=== PATIENT | male | born 1985 | race Two or more races ===

== ENCOUNTER 2018-07-18 18:33 | Emergency (ER) | payer OTHER ==
[~2018-07-18] VITALS: Ht 170.2 cm; Wt 77.1 kg
[2018-07-18 19:11] VITALS: BP 142/79
--- NOTE | 2018-07-18 19:11 | Emergency Room Report ---
History of Present Illness General Chief Complaint: Medical Clearance Source: EMS Present Illness HPI 32-year-old male patient presents the ER brought in by police for medical clearance for incarceration. Please report that patient was running around street throwing rocks at cars. Reports that patient is not answering questions , states that he began sobbing uncontrollably. Patient is a poor historian. Denies chest pain, shortness of breath, abdominal pain. Patient is not providing accurate history. Denies drinking or drug use. Denies past medical history. Patient appears intoxicated, is resting comfortably in bed nontoxic- appearing in no acute distress. Allergies: Coded Allergies: UNABLE TO ASSESS (Unverified , 07/18/18) Patient History Past Medical History: see triage record Reviewed Nursing Documentation: PMH: Agreed; PSxH: Agreed Nursing Documentation-PMH Past Medical History: Deferred Review of Systems All Other Systems: negative except mentioned in HPI Physical Exam Vital Signs Date Time Temp Pulse Resp B/P (MAP) Pulse Ox O2 Delivery O2 Flow Rate FiO2 07/18/18 18:19 98.1 110 20 122/68 98 Room Air Sp02 EP Interpretation: reviewed, normal General Appearance: well appearing, no apparent distress, alert, GCS 15, non- toxic Head: normocephalic, atraumatic, other - Negative varghese sign, negative raccoon eyes Eyes: bilateral eye normal inspection, bilateral eye PERRL ENT: hearing grossly normal, normal pharynx, no angioedema, normal voice, uvula midline, moist mucus membranes, other - dried blood noted at left nares, no active bleeding Neck: full range of motion Respiratory: lungs clear, normal breath sounds, no rhonchi, no respiratory distress, no accessory muscle use, no wheezing, speaking full sentences Cardiovascular #1: regular rate, rhythm, no edema Cardiovascular #2: 2+ radial (R), 2+ radial (L) Gastrointestinal: non tender, soft, no mass, non-distended, no guarding, no rebound Genitourinary: no CVA tenderness Musculoskeletal: back normal, digits/nails normal, gait/station normal, normal range of motion, non-tender Neurologic: alert, oriented x3, responsive, motor strength/tone normal, sensory intact Psychiatric: mood/affect normal Skin: no rash Medical Decision Making PA Attestation Dr. Price is my supervising Physician whom patient management has been discussed with. Diagnostic Impression: Primary Impression: Medical clearance for incarceration Additional Impressions: Amphetamine abuse Epistaxis ER Course Pt. presents to the ED BIB police c/o behavioral complaint, clearance for incarceration. Ddx considered but are not limited to anxiety, depression, drug use, alcohol use , behavioral disorder. Will order labs and CT head due to behavioral complaints. Vital signs: are WNL, pt. is afebrile ER COURSE: Dried blood noted at external right nares, no active bleeding, no blue discoloration. Patient provided with IV fluids. Remainder of PE benign. No skull depression, lungs clear to auscultation, no abdominal TTP. Negative Raccoon eyes, negative Varghese sign. CBC unremarkable, mild anemia noted, does not require transfusion CMP unremarkable other than mild elevation in BUN Serum alcohol less than 3 Acetaminophen and salicylates unremarkable Urine drug screen positive for amphetamines, remainder negative. Advised patient not to use drugs. CT head negative for acute disease. Patient not suicidal or homicidal at this time. Patient in no acute distress, nontoxic appearing, breathing without difficulty. Patient is responsive to questions, arousable. Patient is discharged to police custody, medically cleared for incarceration. Patient seen and evaluated by Dr. Price, agrees with assessment and treatment plan. DISCHARGE: At this time pt is stable for d/c to home. Patient is resting comfortably, in no acute distress, nontoxic appearing, talking without difficulty. Patient to take medications as instructed Will provide with patient care instructions and any necessary prescriptions. Care plan and follow-up instructions provided. Patient instructed to follow-up with primary care provider in 3 - 5 days. Patient questions asked and answered. Patient reports understanding and agreement to treatment plan. ER precautions given. Patient instructed to return to ER immediately for any new or worsening of symptoms including but not limited to increasing SOB, persistent fever, chest pain, intractable vomiting. - Please note that this Emergency Department Report was dictated using [email or web address] technician technology software, occasionally this can lead to erroneous entry secondary to interpretation by the dictation equipment. Labs Test 07/18/18 19:00 07/18/18 20:20 White Blood Count 7.5 K/UL (4.8-10.8) Red Blood Count 4.38 M/UL (4.70-6.10) Hemoglobin 13.1 G/DL (14.2-18.0) Hematocrit 39.1 % (42.0-52.0) Mean Corpuscular Volume 89 FL (80-99) Mean Corpuscular Hemoglobin 30.0 PG (27.0-31.0) Mean Corpuscular Hemoglobin Concent 33.6 G/DL (32.0-36.0) Red Cell Distribution Width 11.9 % (11.6-14.8) Platelet Count 326 K/UL (150-450) Mean Platelet Volume 8.2 FL (6.5-10.1) Neutrophils (%) (Auto) 60.2 % (45.0-75.0) Lymphocytes (%) (Auto) 26.8 % (20.0-45.0) Monocytes (%) (Auto) 11.1 % (1.0-10.0) Eosinophils (%) (Auto) 0.9 % (0.0-3.0) Basophils (%) (Auto) 1.0 % (0.0-2.0) Sodium Level 137 MMOL/L (136-145) Potassium Level 3.3 MMOL/L (3.5-5.1) Chloride Level 101 MMOL/L (98-107) Carbon Dioxide Level 25 MMOL/L (21-32) Anion Gap 11 mmol/L (5-15) Blood Urea Nitrogen 23 mg/dL (7-18) Creatinine 0.8 MG/DL (0.55-1.30) Estimat Glomerular Filtration Rate > 60 mL/min (>60) Glucose Level 128 MG/DL (74-106) Calcium Level 9.4 MG/DL (8.5-10.1) Total Bilirubin 0.3 MG/DL (0.2-1.0) Aspartate Amino Transf (AST/SGOT) 40 U/L (15-37) Alanine Aminotransferase (ALT/SGPT) 51 U/L (12-78) Alkaline Phosphatase 110 U/L (46-116) Total Protein 7.9 G/DL (6.4-8.2) Albumin 3.6 G/DL (3.4-5.0) Globulin 4.3 g/dL Albumin/Globulin Ratio 0.8 (1.0-2.7) Salicylates Level 0.6 ug/mL (2.8-20) Acetaminophen Level < 2 MCG/ML (10-30) Serum Alcohol < 3 mg/dL Urine Opiates Screen Negative (NEGATIVE) Urine Barbiturates Screen Negative (NEGATIVE) Phencyclidine (PCP) Screen Negative (NEGATIVE) Urine Amphetamines Screen Positive (NEGATIVE) Urine Benzodiazepines Screen Negative (NEGATIVE) Urine Cocaine Screen Negative (NEGATIVE) Urine Marijuana (THC) Screen Negative (NEGATIVE) CT/MRI/US Diagnostic Results CT/MRI/US Diagnostic Results : Imaging Test Ordered: CT head Impression No ICH, mass effect or edema. No evidence of acute cortical stroke. Mild ethmoid sinus mucosal thickening. Last Vital Signs Date Time Temp Pulse Resp B/P (MAP) Pulse Ox O2 Delivery O2 Flow Rate FiO2 07/18/18 18:19 98.1 110 20 122/68 98 Room Air Status: improved Disposition: HOME, SELF-CARE Condition: Stable Referrals: NOT CHOSEN IPA/MD,REFERRING (PCP) Patient Instructions: Nosebleed, [id number], Stimulant Use Disorder- Methamphetamines Additional Instructions: Followup with primary care provider in 3 -5 days. Do not use drugs. Take medications as directed. Patient questions asked and answered. ER precautions given, patient instructed to return to ER immediately for any new or worsening of symptoms. Chandan Johnson Jul 18, 2018 19:11
[2018-07-18 19:23] LABS: EOSINOPHILS % (AUTO) 0.9 % (0.0-3.0); HEMATOCRIT 39.1 % (42.0-52.0); HEMOGLOBIN 13.1 G/DL (14.2-18.0); LYMPHOCYTES % (AUTO) 26.8 % (20.0-45.0); MEAN CORPUSCULAR VOLUME 89 FL (80-99); MONOCYTES % (AUTO) 11.1 % (1.0-10.0); NEUTROPHILS % (AUTO) 60.2 % (45.0-75.0); PLATELET COUNT 326 K/UL (150-450); RED BLOOD COUNT 4.38 M/UL (4.70-6.10); RED CELL DISTRIBUTION WIDTH 11.9 % (11.6-14.8); WHITE BLOOD COUNT 7.5 K/UL (4.8-10.8)
[2018-07-18 19:53] LABS: ANION GAP 11 mmol/L (5-15); BLOOD UREA NITROGEN 23 mg/dL (7-18); CALCIUM 9.4 MG/DL (8.5-10.1); CARBON DIOXIDE 25 MMOL/L (21-32); CHLORIDE 101 MMOL/L (98-107); CREATININE 0.8 MG/DL (0.55-1.30); POTASSIUM 3.3 MMOL/L (3.5-5.1); SODIUM 137 MMOL/L (136-145)
[2018-07-18 19:57] LABS: ALANINE AMINOTRANSFERASE 51 U/L (12-78); ALBUMIN 3.6 G/DL (3.4-5.0); ALBUMIN/GLOBULIN RATIO 0.8 (1.0-2.7); ALKALINE PHOSPHATASE 110 U/L (46-116); ASPARTATE AMINO TRANSFERASE 40 U/L (15-37); BILIRUBIN,TOTAL 0.3 MG/DL (0.2-1.0)
[2018-07-18 21:15] VITALS: BP 142/74
[2018-07-18 21:30] VITALS: BP 142/74
--- NOTE | 2018-07-19 14:34 | Diagnostic Imaging Report ---
Indication: Pain Technique: Continuous helical CT scanning of the head was performed without intravenous contrast material. Axial and coronal 5 mm sections were generated. Radiation dose was minimized using automated exposure control Dose: Total Dose Length Product - DLP 1305.[address] Dose Index - CTDIvol(s) 70.38 mGy. Comparison: Findings: The ventricular system is normal in size and configuration. There is no shift of midline structures. No abnormal extra-axial fluid collections are noted. There is no evidence of intracerebral bleeding. No other abnormal high or low density areas are noted within the brain. Normal thomas-white differentiation. Visualized orbits are unremarkable. There is ethmoid sinus disease. The mastoids are clear. The calvarium is intact Impression: Negative for acute intracranial bleed or mass effect Ethmoid sinus disease This agrees with the preliminary interpretation provided overnight by [facility]erad[facility] service. The CT scanner at [facility] is accredited by the [employer] and the scans are performed using protocols designed to limit radiation exposure to as low as reasonably achievable to attain images of sufficient resolution adequate for diagnostic evaluation.
== END 2018-07-18 21:30 | disposition home or self-care (01) ==
LOC: EDBD 18:33 → EMR 19:02
DX: Z02.9 Encounter for administrative examinations, unspecified (principal); F15.10 Other stimulant abuse, uncomplicated; R04.0 Epistaxis
CPT/HCPCS: 36415; 70450; 80053; 80307; 85025; 96360; 99284; G0480; 80329